=== PATIENT | female | born 1965 | race Caucasian/White ===

== ENCOUNTER 2019-08-20 14:46 | Outpatient (CLI) | payer OTHER, SELFPAY ==
--- NOTE | 2019-08-20 | ECG_ITS ---
Measurements Intervals [place] Rate: 54 P: 65 TX: 166 QRS: 27 QRSD: 94 T: 47 QT: 419 QTc: 400 Interpretive Statements SINUS BRADYCARDIA BORDERLINE ECG Electronically Signed On 08-20-2019 16:21:[address] Owens D.O.
--- NOTE | ~2019-08-20 | XR_ITS ---
EXAMINATION: XR chest 2V DATE: 08/20/2019 15:31 INDICATION: Preoperative evaluation. TECHNIQUE: PA and lateral views of the chest were obtained. COMPARISON: None FINDINGS: A few scattered small calcified pulmonary nodules consistent with old granulomatous disease. Minimal atelectasis or scarring at the lung bases. No other airspace opacities, pulmonary edema, pleural effu samanta or pneumothorax. Cardiomediastinal silhouette is normal. Mild thoracic spondylosis. IMPRESSION: 1. Minimal bibasilar atelectasis/scarring. No acute cardiopulmonary disease. Reviewed, dictated and finalized at location H.
[2019-08-20 15:23] LABS: Hematocrit 40.7 % (37.0-47.0); Hemoglobin 13.7 g/dL (12.0-15.0); Mean Corpuscular HGB Conc 33.7 g/dl (32-36); Mean Corpuscular Hemoglobin 29.8 pg (26-34); Mean Corpuscular Volume 88.7 fl (80-100); Mean Platelet Volume 9.6 fl (7.4-10.4); Platelet Count Result 253 k/mm3 (150-375); Red Blood Count 4.59 M/mm3 (4.2-5.4); Red Cell Distribution Width 12.8 % (11.5-14.5); White Blood Count 8.2 K/mm3 (4.5-10.0)
[2019-08-20 15:29] LABS: Add Urine Microscopic? YES; Appearance Urine Clear (Clear); Bilirubin Urine Negative (Negative); Blood Urine 1+ (Negative); Color Urine Yellow (Yellow); Glucose Urine UA Negative (Negative); Ketones Urine Negative (Negative); Leukocyte Esterase Ur Negative LEU/UL (NEGATIVE); Mucus Urine Rare /lpf; Nitrate Urine Negative (Negative); Protein Urine Negative (Negative); Specific Grav Ur 1.024 (1.001-1.035); Squamous Epithelial Cell Urine Few /hpf (Few); Urobilinogen Urine Negative mg/dL (<2.0); WBC Urine 0-3 /hpf (0-3)
[2019-08-20 15:35] LABS: Alanine Aminotransferase 25 U/L (4-35); Albumin Level 4.5 g/dL (3.5-5.1); Alkaline Phosphatase 86 U/L (38-126); Aspartate Amino Transferase 29 U/L (14-36); Bilirubin,Total 0.4 mg/dL (0.2-1.3); Blood Urea Nitrogen 19 mg/dL (7-17); Calcium 9.4 mg/dL (8.4-10.2); Carbon Dioxide 26 mmol/L (22-30); Chloride 106 mmol/L (98-107); Estimated Glomerular Filt Rate > 60; Glucose 97 mg/dL (65-105); Sodium 137 mmol/L (137-145)
[2019-08-20 16:27] LABS: Vitamin D 25 Hydroxy 34.6 ng/mL
[2019-08-23 04:07] LABS: FSH 84.8 mIU/mL (***); LH 37.2 mIU/mL (***)
== END 2019-08-20 14:47 | disposition home or self-care (01) ==
DX: Z01.818 Encounter for other preprocedural examination (principal); J98.11 Atelectasis
CPT/HCPCS: 36415; 71046; 80053; 81001; 82306; 83001; 83002; 85027; 87081; 93005

== ENCOUNTER 2021-06-15 08:08 | Outpatient (CLI) | payer OTHER, SELFPAY ==
--- NOTE | 2021-06-21 21:41 | WPDHOMESLEEP ---
Sleep Study - Home Unattended Date of Study: 06/15/21 <Mee Strong DO - Last Filed: 06/22/21 11:11> Ordering Provider: Daisy Anne MD <Mee Strong DO - Last Filed: 06/22/21 11:11> Interpreting Provider: Mee Strong DO <Mee Strong DO - Last Filed: 06/22/21 11:11> Home Sleep Study Type: Watch PAT <Mee Strong DO - Last Filed: 06/22/21 11:11> Height: 1.7 m <Mee Strong DO - Last Filed: 06/22/21 11:11> Weight: 68.039 kg <Mee Strong DO - Last Filed: 06/22/21 11:11> Body Mass Index: 23.5 <Mee Strong DO - Last Filed: 06/22/21 11:11> Neck Circumference (inches): 12.75 <Mee Strong DO - Last Filed: 06/22/21 11:11> [place]: 6 <Mee Strong DO - Last Filed: 06/22/21 11:11> Reason for Sleep Study Multiple nighttime awakenings <Mee Strong DO - Last Filed: 06/22/21 11:11> Sleep History The patient is a 56-year-old female with insomnia, spinal stenosis, open angle glaucoma and tobacco use that had a HSAT ordered by her PCP for multiple nighttime awakenings and teeth grinding. the patient rarely awakens from sleep short of breath. She rarely awakens at night with heartburn, belching or cough. She occasionally snores but it is rarely lab must the others complain. She denies having trouble sleeping when she has a cold. She occasionally wakes up gasping for air throughout the night. She occasionally has breathing problems at night observed by others. She rarely sweats excessively at night. She denies heart palpitations or irregular heartbeats during the night. She denies falling asleep during the day and while driving. She denies having difficulty at work due to sleepiness. She denies sleep paralysis, cataplexy and hypnagogic / hypnopompic hallucinations. She rarely has nightmares. She occasionally remembers her dreams. She occasionally has thoughts racing through her mind. She rarely feels sad or depressed. She occasionally has anxiety. She rarely notices parts of her body jerk. She denies kicking during the night. She denies having crawling and aching feelings in her legs. She denies having leg pain during the night. She frequently grinds her teeth during sleep but rarely awakens with morning doffing. She is occasionally bothered by pain during the day but never awakened by pain during the night. She rarely wakes up feeling stiff in the morning. She denies waking up with sword achy muscles. She goes to bed at 10:00 p.m. on weekdays and at midnight on the weekends. It takes her 5-10 minutes to fall asleep. She typically wakes up between 3 and 5 times per night. When she awakens, she will fall back asleep within a few minutes. She wakes up at 7:00 a.m. on the weekdays and 9:00 a.m. on the weekends. She typically gets 8 hours of sleep per night. She will not stay in bed after waking up in the morning. She currently lives alone. She does not have rotating shifts at work. She does drink caffeinated tea occasionally before bed. She denies any agent and physical exercise before bedtime. She will watch television before falling asleep. She denies taking naps in the afternoon or the evening. She currently smokes half a pack of cigarettes per day. She drinks up to 1 caffeinated beverage per day. When she does consume alcohol, she will have 4-5 alcoholic beverages per day. She denies recreational drug use. <Mee Strong DO - Last Filed: 06/22/21 11:11> REPLACED BY [facility] Past Medical History Medical History: Medical History Back Pain Insomnia Postmenopausal Spinal stenosis, lumbar <Mee Strong DO - Last Filed: 06/22/21 11:11> Surgical History Surgical History: Surgical History History of lumbosacral spine surgery 09/12 [facility]
[2021-06-22 11:11] VITALS: BMI 23.5
== END 2021-06-18 10:03 | disposition home or self-care (01) ==
LOC: ANHCSM 08:10
PROVIDERS: PCP Family Medicine; Visit Provider Family Medicine
DX: G47.9 Sleep disorder, unspecified (principal)
CPT/HCPCS: 95800

== ENCOUNTER 2021-08-02 07:44 | Outpatient (CLI) | payer OTHER, SELFPAY ==
--- NOTE | 2021-08-08 16:58 | WPDSLEEPSTUD ---
Sleep Study Date of Study: 08/02/21 Ordering Provider: Daisy Anne MD Interpreting Physician: Vivine Hernandez MD Sleep Study Type: Polysomnogram Height: 1.7 m Weight: 65.771 kg Body Mass Index: 22.7 Neck Circumference (inches): 12.5 [place]: 8 Reason for Sleep Study * home sleep test 06/15/2021 with an apnea-hypopnea index of 2.3 with a higher respiratory disturbance index and a concern that this discrepancy represented unrecognized sleep disordered breathing. She presents for a [facility] sleep study. Sleep History Peggy Bowman is a 56-year-old female with insomnia, spinal stenosis, open angle glaucoma and tobacco use. She had a home sleep test for multiple nighttime awakenings and teeth grinding. She rarely awakens from sleep eeling short of breath. She rarely awakens at night with heartburn, belching or coughing. She occasionally snores but it is rarely loud enough that others complain. She denies having trouble sleeping when she has a cold. She occasionally wakes up gasping for air throughout the night. She occasionally has breathing problems at night observed by others. She rarely sweats excessively at night. She denies heart palpitations or irregular heartbeats during the night. She denies falling asleep during the day and while driving. She denies having difficulty at work due to sleepiness. She denies sleep paralysis, muscle weakness with strong emotion, or vivid dreams on waking or falling asleep. She rarely has nightmares. She occasionally remembers her dreams. She occasionally has thoughts racing through her mind. She rarely feels sad or depressed. She occasionally has anxiety. She rarely notices parts of her body jerking. She denies kicking during the night. She denies having crawling and aching feelings in her legs. She denies having leg pain during the night. She frequently grinds her teeth during sleep but rarely awakens with morning doffing. She is occasionally bothered by pain during the day but never awakened by pain during the night. She rarely wakes up feeling stiff in the morning. She denies waking up with sore or achy muscles. Normal bedtime is 10:00 p.m., taking 5-10 minutes to fall asleep. She typically wakes up between 3 and 5 times per night. When she awakens, she will fall back asleep within a few minutes. She wakes up at 7:00 a.m. on the weekdays and 9:00 a.m. on the weekends. She typically gets 8 hours of sleep per night. She will not stay in bed after waking up in the morning. She currently lives alone. She does not have rotating shifts at work. She does drink caffeinated tea occasionally before bed. She denies any agent and physical exercise before bedtime. She denies taking naps in the afternoon or the evening. Habits: tobacco: a half a pack of cigarettes per day. She drinks up to 1 caffeinated beverage per day. When she does consume alcohol, she will have 4-5 alcoholic beverages per day. She denies recreational drug use. FOR[facility]LY [facility] Past Medical History Medical History Back Pain Insomnia Postmenopausal Spinal stenosis, lumbar Surgical History Surgical History History of lumbosacral spine surgery 09/12 [place] teeth extracted (~06/03/18) Family History Family History Other Diabetes mellitus Family history of coronary artery disease Social History Social History Smoking packs per day: 0.5 Smoking cigarettes per day: 10.0 Years smoked: 35 Smoking pack-years: 17.50 Smoking status: Current every day smoker Tobacco type: cigarettes Second hand tobacco smoke exposure: Yes Additional smoking assessment comments: consumes 10 cigarettes daily Alcohol intake: current Alcohol use details: consumes 3-4 beers occasionally Substance use: never
[2021-08-08 17:15] VITALS: BMI 22.7
== END 2021-08-03 07:09 | disposition home or self-care (01) ==
LOC: ANHCSM 07:45
PROVIDERS: PCP Family Medicine; Visit Provider Family Medicine
DX: G47.61 Periodic limb movement disorder (principal)
CPT/HCPCS: 95810

== ENCOUNTER 2022-04-29 16:46 | Outpatient (CLI) | payer OTHER, SELFPAY ==
--- NOTE | ~2022-04-29 | XR_ITS ---
XR tibia fibula RT 2V DATE: 04/29/2022 17:08 INDICATION: Fall. Right lower medial leg pain TECHNIQUE: AP and lateral views COMPARISON: None FINDINGS: No fracture or dislocation, periosteal reaction or bone destruction. Normal alignment at th e knee and ankle joints. IMPRESSION: Negative Reviewed, dictated and finalized at location B. ICAL PATHOLOGIST IMPRESSION: Negative
== END 2022-04-29 16:47 | disposition home or self-care (01) ==
PROVIDERS: PCP Family Medicine; Visit Provider Family Medicine
DX: M79.661 Pain in right lower leg (principal)
CPT/HCPCS: 73590

== ENCOUNTER → 2023-05-20 14:11 | Outpatient (CLI) | payer OTHER, SELFPAY ==
--- NOTE | ~2023-05-20 | CT_ITS ---
EXAMINATION:CT lung screening DATE: 05/20/2023 14:28 INDICATION: Encounter for screening for malignant neoplasm. Current smoker with 30 pack year history. TECHNIQUE: Computed tomography (CT) of the chest was performed without intravenous contrast. Automate d exposure control and iterative reconstruction technique were employed. The dose-length product (DLP ) was 67.91 mGy-cm. COMPARISON: Chest 2 views 08/20/2019 FINDINGS: There is mild scarring at left lung apex. There is a 5 mm nodule at left major fissure. Benjamín cified right lung nodules and calcified right hilar and mediastinal lymph nodes are consistent with o ld granulomatous disease. There is mild scarring in paraspinal right lower lobe. There is mild emphys rosa. No pleural effusion. The heart size is normal. No pericardial effusion. There is mild chronic an terior wedging of multiple vertebral bodies. There is severe thoracic spondylosis. IMPRESSION: 1. Lung-RADS category 2: Benign appearance or behavior. Continue annual screening with noncontrast lo w-dose chest CT in 12 months. Reviewed, dictated and finalized at location E. WORKS INSPECTOR IMPRESSION: 1. Lung-RADS category 2: Benign appearance or behavior. Continue annual screeni ng with noncontrast low-dose chest CT in 12 months.
== END ==
PROVIDERS: PCP Family Medicine; Visit Provider Family Medicine
DX: Z12.2 Encounter for screening for malignant neoplasm of respiratory organs (principal); Z87.891 Personal history of nicotine dependence
CPT/HCPCS: 71271

== ENCOUNTER 2024-01-02 00:42 | Day surgery (SDC) | payer OTHER, SELFPAY ==
[2023-12-15 12:21] VITALS: BMI 23.5
[2024-01-02 10:11] VITALS: BP 134/78; PULSE 58; RESP 20; TEMP 36.3; O2SAT 100
--- NOTE | 2024-01-02 10:21 | WPDANESEPPF ---
Anes - Initial Pre Proc Eval Procedure: Operation Date: 01/02/24 11:30 Proposed Procedures p Colonoscopy - Edward Chan MD Date/Time: 01/02/24 10:21 Surgeon: Edward Chan MD Pre Op Diagnosis: Personal History colon polyps, constipation unspec Patient Data Age: 58 Gender: F Height: 1.7 m Weight: 66 kg Last Vital Signs Temp 97.4 F L 01/02/24 10:11 Pulse 58 L 01/02/24 10:11 Resp 20 01/02/24 10:11 BP 134/78 01/02/24 10:11 Pulse Ox 100 01/02/24 10:11 O2 Del Method Room Air 01/02/24 10:11 Allergies Allergy/AdvReac Type Severity Reaction Status Date / Time No Known Allergies Allergy Verified 01/02/24 10:10 Home Medications Medication Instructions Recorded Confirmed Type calcium citrate 500 mg-vitamin D3 1 tablet PO DAILY 04/29/22 12/15/23 History 12.5 mcg (500 unit) chewable tablet multivitamin 1 tablet PO DAILY 04/29/22 12/15/23 History omega-3 fatty acids 1,000 mg 2,000 mg PO DAILY 04/29/22 12/15/23 History capsule (Super [place]-3) turmeric root extract 500 mg 500 mg PO DAILY 04/29/22 12/15/23 History capsule zolpidem 10 mg tablet (Ambien) 10 mg PO QHS PRN insomnia #20 tabs 05/05/23 12/15/23 Rx Patient hx anesthesia problems: none Family hx anesthesia problems: none Results Review: All pre-operative results and documents have been reviewed as part of the pre-operative evaluation. [facility] Past Medical History Medical History (Updated 09/25/23 @ 11:41 by Suzanne Odom) Back Pain Bruxism (teeth grinding) Dyslipidemia History of colon polyps Ingrown left big toenail Insomnia Postmenopausal Spinal stenosis, lumbar Surgical History Surgical History History of lumbosacral spine surgery 09/12 [place] teeth extracted (~06/03/18) Family History Family History Other Diabetes mellitus Family history of coronary artery disease Social History Social History Smoking packs per day: 0.75 Smoking cigarettes per day: 15.0 Years smoked: 40 Smoking pack-years: 30.00 Smoking status: Current every day smoker Tobacco type: cigarettes Second hand tobacco smoke exposure: Yes Additional smoking assessment comments: consumes 10 cigarettes daily Alcohol intake: current Drinks per week: 1 Alcohol use details: consumes 3-4 beers occasionally Substance use: never Substance use type: marijuana Last use: twice a month Lack of Transportation: No Lack of Food: Never True Current Housing: I Have Housing Concerned About Future Housing: No Difficulty Paying Gas/Electric Bills: No Difficulty Paying for Meds: No Currently Unemployed: No Education: Bachelor's Degree Difficulty w/ Childcare or Family Care: No Living arrangements: alone Occupation/Education: occupation Gender identity (if verbalized by the patient): Female Spiritual care concerns: No Anes - Eval Final PreProcedure Day of Procedure 01/02/24 10:21 Patient weight: normal Heart: regular rate and rhythm Lungs: clear to auscultation Airway: Mallampati scale class II Neurological: alert and oriented Last oral intake: >/= 8 hours ASA classification: II Emergent: no Anesthetic plan: proceed Anesthesia type and monitoring: general GIVS and standard monitoring Results Review: All pre-operative results and documents have been reviewed as part of the pre-operative evaluation. Informed Consent: The patient's anesthetic plan and its attendant risks and benefits were discussed with the patient/family/POA. Questions were solicited and answers provided to the satisfaction of the patient/family/POA.
[2024-01-02] MEDS: LACTATED RINGERS 1,000 ML 150 ML IV CONT (10:24)
--- NOTE | 2024-01-02 10:56 | PM.HPGS ---
History of Present Illness History of Present Illness Consent: Risks, benefits, and alternatives have been discussed and questions answered. Patient agrees to proceed with procedure. Chief complaint: Personal History colon polyps, constipation unspec Narrative: Peggy Bowman is a 58 year old female with colon polyp 6 years ago Review of Systems Review of Systems: All systems reviewed & are unremarkable except as noted in HPI and below PMFSH Past Medical History Medical History (Updated 01/02/24 @ 10:56 by Edward Chan MD) Back Pain Bruxism (teeth grinding) Colon polyp Dyslipidemia History of colon polyps Ingrown left big toenail Insomnia Postmenopausal Spinal stenosis, lumbar Surgical History Surgical History History of lumbosacral spine surgery 09/12 [place] teeth extracted (~06/03/18) Family History Family History Other Diabetes mellitus Family history of coronary artery disease Social History Social History Smoking packs per day: 0.75 Smoking cigarettes per day: 15.0 Years smoked: 40 Smoking pack-years: 30.00 Smoking status: Current every day smoker Tobacco type: cigarettes Second hand tobacco smoke exposure: Yes Additional smoking assessment comments: consumes 10 cigarettes daily Alcohol intake: current Drinks per week: 1 Alcohol use details: consumes 3-4 beers occasionally Substance use: never Substance use type: marijuana Last use: twice a month Lack of Transportation: No Lack of Food: Never True Current Housing: I Have Housing Concerned About Future Housing: No Difficulty Paying Gas/Electric Bills: No Difficulty Paying for Meds: No Currently Unemployed: No Education: Bachelor's Degree Difficulty w/ Childcare or Family Care: No Living arrangements: alone Occupation/Education: occupation Gender identity (if verbalized by the patient): Female Spiritual care concerns: No Meds Home Medications and Allergies Home Medications Medication Instructions Recorded Confirmed Type calcium citrate 500 mg-vitamin D3 1 tablet PO DAILY 04/29/22 12/15/23 History 12.5 mcg (500 unit) chewable tablet multivitamin 1 tablet PO DAILY 04/29/22 12/15/23 History omega-3 fatty acids 1,000 mg 2,000 mg PO DAILY 04/29/22 12/15/23 History capsule (Super [place]-3) turmeric root extract 500 mg 500 mg PO DAILY 04/29/22 12/15/23 History capsule zolpidem 10 mg tablet (Ambien) 10 mg PO QHS PRN insomnia #20 tabs 05/05/23 12/15/23 Rx Allergies Allergy/AdvReac Type Severity Reaction Status Date / Time No Known Allergies Allergy Verified 01/02/24 10:10 Vital Signs Vital Signs - 24 hr 01/02/24 10:11 Temperature 97.4 F L Pulse Rate 58 L Respiratory Rate 20 Blood Pressure 134/78 Pulse Oximetry 100 Oxygen Delivery Room Air Exam Const: General: comfortable and no acute distress HENMT: Face/Nose/Sinus: Normal nares present Eyes: General: appearance normal, both eyes and all related structures Neck: Neck: no JVD Resp: Auscultation: clear to auscultation bilaterally Cardio: Rate: regular rate Rhythm: regular rhythm GI: Inspection: non-distended GI Palp: Yes Soft to palpation Skin: General skin exam: normal color Neuro: General: gait normal Speech: normal speech Extrem: General: normal to inspection Psych: Mental Status: mental status grossly normal Assessment and Plan Assessment and plan (1) Colon polyp: Code(s): K63.5 - Polyp of colon Status: Acute Assessment and Plan: colonoscopy
[2024-01-02 11:06] VITALS: BP 94/57; PULSE 70; RESP 19; O2SAT 97
[2024-01-02 11:16] VITALS: BP 97/63; PULSE 77; RESP 16; O2SAT 98
[2024-01-02 11:26] VITALS: BP 109/69; PULSE 60; RESP 15; O2SAT 98
== END 2024-01-02 11:38 | disposition home or self-care (01) ==
PROVIDERS: PCP Family Medicine; Visit Provider Internal Medicine Gastroenterology
PROC: 0DJD8ZZ Inspection of Lower Intestinal Tract, Via Natural or Artificial Opening Endoscopic (ICD-10-PCS; CPT 45378; principal; 2024-01-02 11:30)
DX: Z12.11 Encounter for screening for malignant neoplasm of colon (principal); K64.8 Other hemorrhoids; Z86.010 Personal history of colon polyps; K59.00 Constipation, unspecified; G47.00 Insomnia, unspecified; F17.210 Nicotine dependence, cigarettes, uncomplicated
CPT/HCPCS: 45378; J2704; J7120

== ENCOUNTER 2024-10-21 16:02 | Outpatient (CLI) | payer OTHER, SELFPAY ==
--- NOTE | ~2024-10-21 | CT_ITS ---
CT Scan of the Chest without Contrast: Clinical Indication: Lung cancer screening, nicotine dependence Technique: Contiguous sections were acquired throughout the chest without intravenous contrast. Dose reduction technique was used on this scan by utilizing automated exposure control and iterative recon struction technique. The dose-length product (DLP) was 66.33 mGy-cm. COMPARISON: 05/20/2023 Findings: There is no evidence of any significant mediastinal, hilar or axillary lymphadenopathy. The mediastin al soft tissues appear normal. There is no evidence of pleural or pericardial effusion. Stable 3 mm right lower lobe pulmonary nodule. Stable calcified right upper lobe granuloma. Stable 5 mm nodule along the left fissure. Images through the upper abdomen reveal no abnormalities. Impression: Lung RADS 2: Benign appearance. 12 month follow-up screening CT advised. Reviewed, dictated and finalized at [facility]. Impression: Lung RADS 2: Benign appearance. 12 month follow-up screening CT advised.
== END 2024-10-21 16:03 | disposition home or self-care (01) ==
LOC: MICIMG 16:02
PROVIDERS: PCP Family Medicine; Visit Provider Family Medicine
DX: Z12.2 Encounter for screening for malignant neoplasm of respiratory organs (principal); Z87.891 Personal history of nicotine dependence
CPT/HCPCS: 71271

== ENCOUNTER 2024-12-17 08:06 | Emergency (ER) | payer OTHER, SELFPAY ==
--- NOTE | ~2024-12-17 | XR_ITS ---
EXAM/ PROCEDURE: XR foot RT min 3V - 12/17/2024 8:20 CDT HISTORY: 59 years old Female with trauma, pain in 5th toe COMPARISON: None available TECHNIQUE: 5 view(s) FINDINGS/ IMPRESSION: Age-indeterminate fracture of the fifth proximal phalanx. Correlate with point tenderness to rule out acute fracture. There are no dislocations.Joint spaces are within normal limits. Reviewed, dictated and finalized at location A.
--- NOTE | 2024-12-17 08:08 | ED_ITS ---
HPI - Extremity Injury (Lower) General Chief Complaint: Extremity Injury, Lower Stated Complaint: R injured toe Time Seen by Provider: 12/17/24 08:08 Source: patient Mode of arrival: ambulatory Limitations: no limitations History of Present Illness HPI Narrative: Patient is a 59-year-old female who presents with right pinky toe injury. Patient states she was opening a door and hit her toe. Denies any previous i njury to toe. Has exterminator helper for ingrown toes ready. Has not taken anything for pain. Related Data Home Medications ?Medication ?Instructions ?Recorded ?Confirmed ?Last Taken ?Type calcium 500 mg (as citrate)-vit D3 1 tablet PO DAILY 04/29/22 10/13/24 Unknown History 12.5 mcg (500 unit) chewable tablet multivitamin 1 tablet PO DAILY 04/29/22 10/13/24 Unknown History omega-3 fatty acids 1,000 mg 2,000 mg PO DAILY 04/29/22 10/13/24 Unknown History capsule (Super Alvarado-3) turmeric root extract 500 mg 500 mg PO DAILY 04/29/22 10/13/24 Unknown History capsule Allergies Allergy/AdvReac Type Severity Reaction Status Date / Time No Known Allergies Allergy Verified 12/17/24 08:12 Review of Systems Review of Systems: All systems reviewed & are unremarkable except as noted in HPI and below Constitutional: Constitutional: Denies body ache(s), Denies chills, Denies fatigue, Denies fever(s), Denies headache(s), Denies malaise and Denies weakness Eyes: Eyes: Denies blurry vision, Denies irritation and Denies loss of vision ENT: Denies otalgia, Denies headache(s), Denies nasal discharge, Denies sinus pain and Denies sore throat Cardiovascular: Cardiovascular: Denies chest pain, Denies irregular heart rhy thm and Denies dyspnea Respiratory: Respiratory: Denies dyspnea Gastrointestinal: Gastrointestinal: Denies abdominal pain, Denies melena, Denies hematochezia, Denies diarrhea, Denies nausea and Denies vomiting Musculoskeletal: Musculoskeletal: Denies back pain, Denies myalgias and Reports arthralgias Integumentary/Breasts: Skin/Breast: Denies pruritus and Denies rash Neurologic: Denies headache(s), Denies loss of vision and Denies weakness Psychiatric: Psychiatric: Reports no additional psychiatric complaints Endocrine: Endocrine: Denies fatigue PMFSH Past Medical History Medical History Colon polyp Ingrown left big toenail Dyslipidemia History of colon polyps Bruxism (teeth grinding) Insomnia Postmenopausal Spinal stenosis, lumbar Back Pain Surgical History Surgical History History of lumbosacral spine surgery 09/12 [place] teeth extracted (~06/03/18) Family History Family History Other Diabetes mellitus Family history of coronary artery disease Social History Social History Smoking packs per day: 0.75 Smoking cigarettes per day: 15.0 Years smoked: 40 Smoking pack-years: 30.00 Smoking status: Current every day smoker Tobacco type: cigarettes Second hand tobacco smoke exposure: Yes Additional smoking assessment comments: consumes 10 cigarettes daily Alcohol intake: current Drinks per week: 1 Alcohol use details: consumes 3-4 beers occasionally Substance use: never Substance use type: marijuana Last use: twice a month Lack of Transportation: No Lack of Food: Never True Current Housing: I Have Housing Concerned About Future Housing: No Difficulty Paying Gas/Electric Bills: No Difficulty Paying for Meds: No Currently Unemployed: No Education: Bachelor's Degree Difficulty w/ Childcare or Family Care: No Living arrangements: alone Occupation/Education: occupation Gender identity (if verbalized by the patient): Female Spiritual care concerns: No Comments At time of signature, agree with nursing past medical, surgical, social and family history. There is no relevant family history pertinent to the presenting complaint. Exam Const: General: cooperative, healthy appearing, comfortable, no acute distress and well nourished Nutritional Appearance: well nourished Orientation/consciousness: patient oriented x3 Limitations: no limitations HENMT: Head: normal to inspection, normocephalic and atraumatic Ears: hearing grossly normal bilaterally and external ears normal Face/Nose/Sinus: Normal external nose present, normal facial exam and face symmetric Face and sinus: normal facial exam and face symmetric Mouth: Yes lip normal Eyes: General: appearance normal, both eyes and all related structures Alignment and Position: alignment normal and position normal Periorbital: periorbital findings normal Eyelids: eyelids normal Pupils: Equal, round and reactive pupils present EOM: EOMs intact bilaterally Neck: Neck: normal visual inspection, full ROM and supple Chest: Chest palpation & inspection: normal inspection of the chest Resp: Effort & Inspection: normal respiratory effort and able to speak in complete sentences Auscultation: clear to auscultation bilaterally Cardio: Rate: regular rate Rhythm: regular rhythm Heart sounds: S1 normal heart sound present and S2 normal heart sound present GI: Inspection: normal to inspection Skin: General skin exam: normal color and no rashes or lesions noted Neuro: General: patient oriented x3 and moves all extremities Cranial nerves: Yes Equal, round and reactive pupils present Speech: normal speech Gait exam (Neuro): Normal gait present Extrem: General: normal to inspection, full ROM and no edema Right lower extremity: ankle Details: normal to inspection and normal ROM; no tenderness, no swelling, no ecchymosis and achilles tendon exam normal and foot Details: normal capillary refill, tenderness Location: of another digit Location: the 5th digit and at the proximal phalanx, abnormal ROM of toe Details: pain with active ROM Location: of the 5th digit, ecchymosis 5th toe Details: single, vascular exam Details: dorsalis pedis pulse present and normal capillary refill and tendon exam Details: active flexion normal Location: of the great toe, of the 2nd digit, of the 3rd digit and of the 4th digit and active extension normal Location: of the great toe, of the 2nd digit, of the 3rd digit and of the 4th digit; no unusual warmth Psych: Appearance: grossly normal and well kempt Mental Status: mental status grossly normal Speech and movement: Normal speech and movement present Affect: normal affect Attitude: cooperative Thought process: Normal thought process present Course Course Emergency Course: Patient is aware of diagnosis, understands and agrees to treatment plan. Anticipatory guidance given. Patient agrees to follow-up as directed and is aware of reasons to seek care at the emergency department. Portions of this record may have been created with voice recognition software Level of Care: Express Care Visit Vital Signs Vital signs: Reviewed MDM - Extremity Injury (Lower) MDM Narrative Medical decision making narrative: Toe does appear deformed but x-ray shows no dislocation. Ronnie-taped to 4th digit. Patient will follow-up with her exterminator helper on Friday. Instructed to wear athletic shoes for support Pt well hydrated appearing, in no respiratory distress, hemodynamically stable. Recommend supportive care. The patient is stable at time of discharge the clinical impression was discussed and the patient was given the opportunity to ask questions, which were addressed as completely as possible given the information available at present. Anticipatory guidance and return to care precautions were discussed and the importance of primary care follow-up was stressed and encouraged. The patient voiced understanding of the plan, indications to return, and the need for follow-up. Exam findings show no acute concerns or changes Patient is appropriate for outpatient treatment and follow-up. Differential Diagnosis Differential diagnosis: Likely fracture of toe and other (Toe sprain, toe dislocation) Medical Records Attestation: I reviewed the patient's medical records. Imaging Data Radiologist's impression: EXAM/ PROCEDURE: XR foot RT min 3V - 12/17/2024 8:20 CDT HISTORY: 59 years old Female with trauma, pain in 5th toe COMPARISON: None available TECHNIQUE: 5 view(s) FINDINGS/ IMPRESSION: Age-indeterminate fracture of the fifth proximal phalanx. Correlate with point tenderness to rule out acute fracture. There are no dislocations.Joint spaces are within normal limits. Discharge Plan Discharge Clinical Impression: Fracture of toe Qualifiers: Encounter type: initial encounter Toe: lesser toe Fracture type: closed Phalanx: proximal Fracture alignment: nondisplaced Laterality: right Qualified Code(s): S92.514A - Nondisplaced fracture of proximal phalanx of right lesser toe(s), initial encounter for closed fracture Patient Disposition: Home Condition: Stable Instructions: Toe Fracture (ED) Additional Instructions: Please rest, ice and elevate the affected extremity. Please take Motrin 600mg every 8 hours, as needed, for pain (take with food). Follow up with your exterminator helper in 1-2 days for further evaluation - please call for an appointment. Keep toes ronnie-taped and wear tennis shoes. Please go to ER immediately for increased pain, tingling/numbness, swelling, redness, and fever Patient Language: Fijian Prescriptions: No Action multivitamin Tablet 1 tablet PO DAILY omega-3 fatty acids [Super Alvarado-3] 1,000 mg capsule 2,000 mg PO DAILY turmeric root extract 500 mg capsule 500 mg PO DAILY calcium citrate-vitamin D3 500 mg-12.5 mcg (500 unit) tablet,chewable 1 tablet PO DAILY zolpidem [Ambien] 10 mg tablet 10 mg PO QHS PRN (Reason: insomnia) Qty: 20 1RF ropinirole 2 mg tablet 2 mg PO QHS Qty: 90 0RF Follow-up/Referrals: Tej Anne MD [Primary Care Provider] - 3 Days Time of Disposition: 08:46
[2024-12-17 08:15] VITALS: BP 133/73; PULSE 65; RESP 20; TEMP 36.8; O2SAT 97
== END 2024-12-17 08:49 | disposition home or self-care (01) ==
PROVIDERS: Emergency Provider Nurse Practitioner Family; PCP Family Medicine
DX: S92.514A Nondisplaced fracture of proximal phalanx of right lesser toe(s), initial encounter for closed fracture (principal); W22.8XXA Striking against or struck by other objects, initial encounter; E78.5 Hyperlipidemia, unspecified; M48.061 Spinal stenosis, lumbar region without neurogenic claudication; F17.210 Nicotine dependence, cigarettes, uncomplicated
CPT/HCPCS: 73630; 99214; G0463